=== PATIENT | female | born 1995 | race Caucasian/White ===

== ENCOUNTER 2018-11-22 20:29 | Emergency (ER) | payer OTHER ==
[~2018-11-22] VITALS: Ht 162.6 cm; Wt 73.5 kg
[2018-11-22 20:50] VITALS: BP 115/79
== END 2018-11-22 21:36 | disposition home or self-care (01) ==
LOC: ED 21:29
DX: J03.00 Acute streptococcal tonsillitis, unspecified (principal)
CPT/HCPCS: 99283

== ENCOUNTER 2018-11-25 15:11 | Emergency (ER) | payer OTHER ==
[~2018-11-25] VITALS: Ht 162.6 cm; Wt 74.3 kg
[2018-11-25 16:33] LABS: MD YES; MEAN CORPUSCULAR HEMOGLOBIN 30.2 pg (27.0-34.8); MEAN CORPUSCULAR HGB CONC 33.9 g/dL (32.4-35.8); MEAN CORPUSCULAR VOLUME 89.2 fL (80-100); MEAN PLATELET VOLUME 7.6 fL (7.4-10.4); PLATELET COUNT 246 x10^3/uL (130-400); RED BLOOD COUNT 4.85 x10^6/uL (3.82-5.3); RED CELL DISTRIBUTION WIDTH 12.6 % (9.6-15.2)
[2018-11-25 16:43] LABS: ALBUMIN 3.7 g/dL (3.4-5.0); ANION GAP 6 mmol/L (5-15); CALCIUM 8.9 mg/dL (8.5-10.1); CHLORIDE 110 mmol/L (98-107)
[2018-11-25] MEDS ORDERED: AMOX1TAB64 PO (16:51)
[2018-11-25] MEDS ORDERED: BIRTH CONTROL (16:51)
--- NOTE | 2018-11-25 16:54 | NUR ---
PRESENTS FROM FOR INFLAMMED THROAT. REPORTS MUSCLE ACHES W/ FEVER ON FRIDAY. WOKE ON FRIDAY WITH SORE THROAT AND INTERMITTENT FEVERS. SEEN HERE LATE FRIDAY NIGHT AND SENT HOME ON AUGMENTIN. PRESENTED TO [facility] TODAY THROAT PAIN NOT IMPROVING. AFEBRILE, VSS. NO VOICE CHANGE, SWALLOWING W/ MILD DIFFICULT. THROAT QUITE RED/SWOLLEN. PIV PLACED FOR PENDING CT
[2018-11-25] MEDS ORDERED: HYDROcodone/APAP 5/325 TABLET ONE (16:59)
[2018-11-25] MEDS ORDERED: HYDROcodone/APAP 5/325 TABLET PO ONE (17:00)
[2018-11-25 17:24] LABS: EOS#(MANUAL) 0.15 x10^3/uL (0.0-0.4); EOS% (MANUAL) 1 % (1-7); LYMPH#(MANUAL) 8.67 x10^3/uL (1-3.4); LYMPHS% (MANUAL) 59 % (22-44); REACTIVE LYMPHS # (MANUAL) 1.32 x10^3/uL (0-0); REACTIVE LYMPHS % (MANUAL) 9 % (0-0); SEG#(MANUAL) 2.65 x10^3/uL (1.8-6.8); SEGS% (MANUAL) 18 % (42-75)
[2018-11-25 17:25] LABS: OTHER CELLS # (MANUAL) 0.44 x10^3/uL (0-0); OTHER CELLS % (MANUAL) 3 % (0-0)
[2018-11-25 17:26] LABS: MONOS#(MANUAL) 1.47 x10^3/uL (0.3-2.7); MONOS% (MANUAL) 10 % (2-9)
[2018-11-25 17:28] LABS: <PLATELET ESTIMATE> ADEQUATE; <PLT MORPHOLOGY> NORMAL PLT MORPH; <RBC MORPHOLOGY> NORMAL
--- NOTE | 2018-11-25 17:50 | NUR ---
JUST TO CT NOW AFTER [employer]IL FIELD WORKER CALLED. PATIENT REPORTS RAMONA HELPING PAIN. VSS. RESTING IN CHAIR W/ CALL LEE IN HAND. FRIENDS X2 AT BEDSIDE
[2018-11-25] MEDS ORDERED: OMNIPAQUE 350 MG/ML, 100ML BOTTLE ONE (18:17)
--- NOTE | 2018-11-25 18:50 | NUR ---
Patient reports pain "much improved" after norco administration. taking po fluids w/out difficulty. swallowing/voice unchanged. MD to bedside to reEval
[2018-11-25] MEDS ORDERED: DEXAMETHASONE 4 MG TABLET PO ONE (19:00)
[2018-11-25] MEDS ORDERED: DEXAMETHASONE 4 MG TABLET ONE (19:19)
[2018-11-25 19:32] VITALS: BP 116/71
== END 2018-11-25 19:37 | disposition home or self-care (01) ==
LOC: ED 17:41
DX: J03.80 Acute tonsillitis due to other specified organisms (principal); B27.90 Infectious mononucleosis, unspecified without complication
CPT/HCPCS: 36415; 70491; 80048; 82040; 84703; 85025; 86308; 99284; Q9967